=== PATIENT | female | born 1985 | race Caucasian/White ===

== ENCOUNTER 2017-01-30 19:19 | Emergency (ER) | payer MEDICAID ==
[~2017-01-30 19:19] MED LIST: CIPROFLOXACIN500 MG PO; FLA500 PO; LAC PO; PRILOSEC20 MG PO; TRAZODONE50 M1 PO; TYL325 PO; ZOF4 PO
[2017-01-30 20:57] LABS: BASOPHIL % 0.4 % (0-2); PLATELET COUNT 171 x10^3mcL (130-400); RED CELL DISTRIBUTION WIDTH 13.4 % (11.5-14.5)
[2017-01-30 21:08] LABS: CALCIUM 8.6 mg/dL (8.5-10.1); CARBON DIOXIDE 28.8 mmol/L (21-32); CHLORIDE SERUM 104 mmol/L (98-107); CREATININE SERUM 0.8 mg/dL (0.6-1.0); GFR1 > 60 mL/min; GLUCOSE SERUM 102 mg/dL (74-106); POTASSIUM SERUM 3.7 mmol/L (3.5-5.1); SODIUM SERUM 142 mmol/L (136-145)
[2017-01-30 21:13] LABS: ALBUMIN 4.1 g/dL (3.4-5.0); ALKALINE PHOSPHATASE 59 U/L (46-116); ALT/SGPT 86 U/L (14-59); AST/SGOT 33 U/L (15-37); BILIRUBIN TOTAL 1.71 mg/dL (0.20-1.00); TOTAL PROTEIN, SERUM 7.8 g/dL (6.4-8.2)
[2017-01-30 22:35] VITALS: BP 141/96
== END 2017-01-30 22:35 | disposition home or self-care (01) ==
LOC: ED 19:19
PROVIDERS: Emergency Medicine
DX: H83.09 Labyrinthitis, unspecified ear (principal); H81.10 Benign paroxysmal vertigo, unspecified ear
CPT/HCPCS: 36415; J8597

== ENCOUNTER 2017-05-08 22:10 | Emergency (ER) | payer MEDICAID ==
[~2017-05-08] VITALS: Ht 162.6 cm; Wt 107.5 kg
[2017-05-08 22:17] VITALS: Ht 162.6 cm; Wt 107.5 kg
[2017-05-08 23:09] VITALS: BP 161/113
== END 2017-05-08 23:09 | disposition home or self-care (01) ==
LOC: ED 22:10
DX: R20.0 Anesthesia of skin (principal); F41.9 Anxiety disorder, unspecified; I10 Essential (primary) hypertension; K21.9 Gastro-esophageal reflux disease without esophagitis; Z88.1 Allergy status to other antibiotic agents; Z88.5 Allergy status to narcotic agent
CPT/HCPCS: 82962

== ENCOUNTER 2017-07-13 13:45 | Emergency (ER) | payer MEDICAID ==
[~2017-07-13] VITALS: Ht 162.6 cm; Wt 99.8 kg
[2017-07-13 13:52] VITALS: BP 132/92; Ht 162.6 cm; Wt 99.8 kg
== END 2017-07-13 17:45 | disposition home or self-care (01) ==
LOC: ED 13:45
DX: B34.9 Viral infection, unspecified (principal)
CPT/HCPCS: 87804; J7620

== ENCOUNTER 2018-10-05 08:28 | Emergency (ER) | payer MEDICAID ==
[~2018-10-05] VITALS: Ht 162.6 cm; Wt 115.7 kg
[2018-10-05 08:32] VITALS: Ht 162.6 cm; Wt 115.7 kg
[2018-10-05 08:59] VITALS: BP 148/97
== END 2018-10-05 08:59 | disposition home or self-care (01) ==
LOC: ED 08:28
DX: J30.9 Allergic rhinitis, unspecified (principal); H66.92 Otitis media, unspecified, left ear; K21.9 Gastro-esophageal reflux disease without esophagitis; F41.9 Anxiety disorder, unspecified; I10 Essential (primary) hypertension; Z88.0 Allergy status to penicillin; Z88.5 Allergy status to narcotic agent; Z88.8 Allergy status to other drugs, medicaments and biological substances

== ENCOUNTER 2019-02-21 13:00 | Emergency (ER) | payer MEDICAID ==
[~2019-02-21] VITALS: Ht 162.6 cm; Wt 117.9 kg
[2019-02-21 13:05] VITALS: Ht 162.6 cm; Wt 117.9 kg
[2019-02-21 14:49] VITALS: BP 154/94
== END 2019-02-21 14:49 | disposition home or self-care (01) ==
LOC: ED 13:00
DX: S63.91XA Sprain of unspecified part of right wrist and hand, initial encounter (principal); I10 Essential (primary) hypertension; K21.9 Gastro-esophageal reflux disease without esophagitis; F41.9 Anxiety disorder, unspecified; Z88.0 Allergy status to penicillin; Z88.1 Allergy status to other antibiotic agents; Z88.5 Allergy status to narcotic agent; X58.XXXA Exposure to other specified factors, initial encounter; Y93.E9 Activity, other interior property and clothing maintenance; Y92.89 Other specified places as the place of occurrence of the external cause; Y99.8 Other external cause status

== ENCOUNTER 2019-03-11 08:49 | Emergency (ER) | payer MEDICAID ==
[~2019-03-11] VITALS: Ht 162.6 cm; Wt 117.1 kg
[2019-03-11 08:55] VITALS: Ht 162.6 cm; Wt 117.1 kg
[2019-03-11 09:51] LABS: CALCIUM 8.5 mg/dL (8.5-10.1); CHLORIDE SERUM 104 mmol/L (98-107); CREATININE SERUM 0.7 mg/dL (0.6-1.0); GFR1 > 60 mL/min; GLUCOSE SERUM 135 mg/dL (74-106); POTASSIUM SERUM 4.2 mmol/L (3.5-5.1); SODIUM SERUM 139 mmol/L (136-145)
[2019-03-11 09:54] LABS: BASOPHIL % 0.5 % (0-2); PLATELET COUNT 158 x10^3mcL (130-400); RED CELL DISTRIBUTION WIDTH 13.1 % (11.5-14.5)
[2019-03-11 09:56] LABS: ALBUMIN 4.1 g/dL (3.4-5.0); ALKALINE PHOSPHATASE 63 U/L (46-116); ALT/SGPT 247 U/L (14-59); AST/SGOT 79 U/L (15-37); BILIRUBIN TOTAL 1.64 mg/dL (0.20-1.00); TOTAL PROTEIN, SERUM 7.8 g/dL (6.4-8.2)
[2019-03-11 11:50] VITALS: BP 122/80
== END 2019-03-11 11:50 | disposition home or self-care (01) ==
LOC: ED 08:49
PROVIDERS: Emergency Medicine
DX: H66.92 Otitis media, unspecified, left ear (principal); R42 Dizziness and giddiness; I10 Essential (primary) hypertension; F41.9 Anxiety disorder, unspecified; K21.9 Gastro-esophageal reflux disease without esophagitis; Z88.0 Allergy status to penicillin; Z88.5 Allergy status to narcotic agent; Z88.8 Allergy status to other drugs, medicaments and biological substances
CPT/HCPCS: J2405; J7030; J8597

== ENCOUNTER 2019-09-19 10:05 | Emergency (ER) | payer MEDICAID, SELFPAY ==
[~2019-09-19] VITALS: Ht 162.6 cm; Wt 108.9 kg
[2019-09-19 10:14] VITALS: Ht 162.6 cm; Wt 108.9 kg
[2019-09-19 11:37] LABS: BASOPHIL % 0.4 % (0-2); PLATELET COUNT 160 x10^3mcL (130-400)
[2019-09-19 11:51] LABS: CALCIUM 9.3 mg/dL (8.5-10.1); CARBON DIOXIDE 27.3 mmol/L (21-32); CHLORIDE SERUM 102 mmol/L (98-107); CREATININE SERUM 0.7 mg/dL (0.6-1.0); GFR1 > 60 mL/min; GLUCOSE SERUM 99 mg/dL (74-106); POTASSIUM SERUM 4.1 mmol/L (3.5-5.1); SODIUM SERUM 137 mmol/L (136-145)
[2019-09-19 11:55] LABS: ALBUMIN 4.8 g/dL (3.4-5.0); ALKALINE PHOSPHATASE 55 U/L (46-116); ALT/SGPT 111 U/L (14-59); AST/SGOT 37 U/L (15-37); BILIRUBIN TOTAL 3.37 mg/dL (0.20-1.00)
[2019-09-19 13:15] VITALS: BP 153/95
== END 2019-09-19 13:15 | disposition home or self-care (01) ==
LOC: ED 10:05
PROVIDERS: Emergency Medicine
DX: R07.89 Other chest pain (principal); F41.9 Anxiety disorder, unspecified; I10 Essential (primary) hypertension; K21.9 Gastro-esophageal reflux disease without esophagitis; Z20.828 Contact with and (suspected) exposure to other viral communicable diseases; Z88.5 Allergy status to narcotic agent; Z88.0 Allergy status to penicillin; Z88.8 Allergy status to other drugs, medicaments and biological substances
CPT/HCPCS: 36415; 83880; Q0092